=== PATIENT | female | born 1970 | race Caucasian/White ===

== ENCOUNTER 2024-12-06 10:03 | Emergency (ER) | payer BC ==
[2024-12-06] MEDS: Aspirin 81 MG Tab.Chew PO ONE (10:08)
[2024-12-06] MEDS ORDERED: Sodium Chloride 0.9% 10 ML Syringe FLUSH PRN (10:09)
[2024-12-06 10:24] LABS: BASOPHILS ABSOLUTE AUTO 0.03 K/uL (0.00-0.20); BASOPHILS PERCENT AUTO 0.6 % (0.0-2.0); EOSINOPHILS ABSOLUTE AUTO 0.08 K/uL (0.00-0.50); EOSINOPHILS PERCENT AUTO 1.6 % (0.0-5.0); HEMOGLOBIN 13.3 g/dL (11.7-15.5); IMMATURE GRAN ABSOLUTE AUTO 0.01 10^3/uL (0.00-0.04); IMMATURE GRAN PERCENT AUTO 0.2 % (0.0-0.4); LYMPHOCYTES ABSOLUTE AUTO 1.94 K/uL (0.50-3.50); LYMPHOCYTES PERCENT AUTO 39.8 % (10.0-50.0); MEAN CORPUSCULAR HEMOGLOBIN 28.9 pg (28.2-33.3); MEAN CORPUSCULAR HGB CONC 33.3 g/dL (31.7-36.0); MONOCYTES ABSOLUTE AUTO 0.39 K/uL (0.00-1.00); NEUTROPHILS ABSOLUTE AUTO 2.43 K/uL (1.40-7.00); NEUTROPHILS PERCENT AUTO 49.8 % (45.0-80.0); PLATELET COUNT,PLT 190 K/uL (150-350); WHITE BLOOD CELL COUNT,WBC 4.9 K/uL (4.0-10.2)
[2024-12-06] MEDS: Aspirin 81 MG Tab.Chew ONE (10:53)
[2024-12-06 10:55] LABS: ALANINE AMINOTRANSFERASE,ALT 39 U/L (12-78); ALBUMIN 3.5 g/dL (3.4-5.0); ALKALINE PHOSPHATASE 85 IU/L (46-116); ANION GAP 10.1 meq/L (7-15); ASPARTATE AMNIOTRANSFERASE,AST 22 U/L (15-37); BILIRUBIN TOTAL 0.3 mg/dL (0.2-1.0); BLOOD UREA NITROGEN,BUN 14 mg/dL (7-18); CARBON DIOXIDE,CO2 25.9 mmol/L (21.0-32.0); CHLORIDE,CL 103 mmol/L (98-107); CREATININE 0.74 mg/dL (0.51-1.17); EST CRCL DRUG DOSING (CG) 93.48 mL/min; GLUCOSE RANDOM 92 mg/dL (70-99); MAGNESIUM 1.8 mg/dL (1.8-2.4); POTASSIUM,K 3.9 mmol/L (3.5-5.1); PRO B-TYPE NATRIUR PEPT,BNPPRO 20 pg/mL (0-125); PROTEIN TOTAL,TP 6.9 g/dL (6.4-8.2); SODIUM,NA 139 mmol/L (136-145)
[2024-12-06 10:56] LABS: ESTIMATED GFR 97 mL/min (>=60)
[2024-12-06] MEDS: cloNIDine 0.1 MG Tab PO ONE (11:00)
[2024-12-06 15:04] VITALS: BP 117/92; PULSE 80
== END 2024-12-06 14:38 | disposition home or self-care (01) ==
LOC: LL.ED 10:03
DX: I16.0 Hypertensive urgency (principal); E66.9 Obesity, unspecified; Z68.36 Body mass index [BMI] 36.0-36.9, adult; Z87.891 Personal history of nicotine dependence; Z79.899 Other long term (current) drug therapy
CPT/HCPCS: 36415; 71045; 80053; 83735; 83880; 84484; 85025; 85379; 87428-QW; 93005; 99285; A9270-GY